=== PATIENT | female | born 1985 | race Caucasian/White ===

== ENCOUNTER 2018-06-16 16:55 | Day surgery (SDC) | payer OTHER ==
[~2018-06-16] VITALS: Ht 160 cm; Wt 98.6 kg
[2018-06-16] MEDS ORDERED: LACTATED RINGERS 1,000 ML IV SCH (17:16)
[2018-06-16] MEDS ORDERED: MISOPROSTOL 200 MCG TABLET ONE (17:22)
[2018-06-16] MEDS ORDERED: METHYLERGONOVINE 0.2 MG/ML IM ONE (17:22)
[2018-06-16] MEDS ORDERED: OXYTOCIN 10 UNITS/ML, 1ML ONE (17:22)
[2018-06-16 17:33] VITALS: BP 105/71
[2018-06-16 17:35] LABS: MICROSCOPIC AUTO
[2018-06-16] MEDS ORDERED: KETOROLAC 30 MG/1 ML ONE (17:38)
[2018-06-16] MEDS ORDERED: DEXAMETHASONE 4 MG/ML, 1ML ONE (17:38)
[2018-06-16] MEDS ORDERED: ONDANSETRON 2MG/ML, 2ML ONE (17:38)
[2018-06-16] MEDS ORDERED: PROPOFOL 10 MG/ML, 20ML ONE (17:38)
[2018-06-16] MEDS ORDERED: PLEASE ENTER HEIGHT AND WEIGHT MC SCH (18:00)
[2018-06-16] MEDS ORDERED: PLEASE ENTER ALLERGIES MC SCH (18:00)
[2018-06-16 18:07] LABS: BASOPHILS # (AUTO) 0.04 x10^3/uL (0-0.1); BASOPHILS % (AUTO) 1 % (0-1); EOSINOPHILS # (AUTO) 0.07 x10^3/uL (0-0.4); EOSINOPHILS % (AUTO) 1 % (1-7); LYMPHOCYTES # (AUTO) 1.97 x10^3/uL (1-3.4); LYMPHOCYTES % (AUTO) 30 % (22-44); MD NO; MEAN CORPUSCULAR HEMOGLOBIN 30.8 pg (27.0-34.8); MEAN CORPUSCULAR HGB CONC 34.7 g/dL (32.4-35.8); MEAN CORPUSCULAR VOLUME 88.7 fL (80-100); MEAN PLATELET VOLUME 7.6 fL (7.4-10.4); MONOCYTES # (AUTO) 0.36 x10^3/uL (0.2-0.8); MONOCYTES % (AUTO) 6 % (2-9); NEUTROPHILS # (AUTO) 4.04 x10^3/uL (1.8-6.8); NEUTROPHILS % (AUTO) 62 % (42-75); PLATELET COUNT 216 x10^3/uL (130-400); RED BLOOD COUNT 4.62 x10^6/uL (3.82-5.3); RED CELL DISTRIBUTION WIDTH 12.9 % (9.6-15.2)
[2018-06-16 18:23] LABS: ALANINE AMINOTRANSFERASE 16 U/L (12-78); ANION GAP 9 mmol/L (5-15); CALCIUM 8.9 mg/dL (8.5-10.1); CHLORIDE 107 mmol/L (98-107); CREATININE 0.63 mg/dL (0.55-1.02)
[2018-06-16] MEDS ORDERED: FENTANYL PF 100 MCG/2ML IV PRN (18:30)
[2018-06-16] MEDS ORDERED: MEPERIDINE/PF 25MG/0.5ML IVPush PRN (18:30)
[2018-06-16] MEDS ORDERED: HYDROmorphone 1 MG/ML, 1ML IV PRN (18:30)
[2018-06-16] MEDS ORDERED: ONDANSETRON 2MG/ML, 2ML IVPush PRN (18:30)
[2018-06-16] MEDS ORDERED: METOCLOPRAMIDE 5 MG/ML, 2ML IV PRN (18:30)
[2018-06-16] MEDS ORDERED: PROMETHAZINE 25 MG/ML, 1ML IV PRN (18:30)
[2018-06-16] MEDS ORDERED: hydrALAzine 20 MG/ML, 1ML IV PRN (18:30)
[2018-06-16] MEDS ORDERED: OXYcodone 5 MG/5 ML ORAL.SOL UDC PO PRN (18:30)
[2018-06-16] MEDS ORDERED: LABETALOL 5MG/ML, 20ML IV PRN (18:30)
[2018-06-16] MEDS ORDERED: ALBUTEROL SULFATE 2.5 MG/3 ML NPPB PRN (18:30)
[2018-06-16] MEDS ORDERED: KETOROLAC 30 MG/1 ML IV PRN (18:30)
[2018-06-16 18:40] LABS: ALKALINE PHOSPHATASE 35 U/L (45-117); BILIRUBIN,TOTAL 0.8 mg/dL (0.2-1.0); TOTAL PROTEIN 7.2 g/dL (6.4-8.2)
== END 2018-06-16 20:25 | disposition home or self-care (01) ==
LOC: MERGE 16:55 → OR 16:55 → UNMERGE 16:55 → 4NOR 19:10 → OR 20:25
PROVIDERS: ATTEND Obstetrics & Gynecology Gynecology
DX: O02.1 Missed abortion (principal)
CPT/HCPCS: 36415; 59820; 80053; 81001; 84702; 85025; 86850; 86900; J1100; J1885; J2210; J2250; J2405; J2590; J2704; J3010; G0378